=== PATIENT | female | born 1990 | race Caucasian/White ===

== ENCOUNTER 2018-12-07 09:56 | Outpatient (CLI) | payer MEDICAID, OTHER ==
[~2018-12-07] VITALS: Ht 165.1 cm; Wt 81.2 kg
[~2018-12-07 09:56] MED LIST: FERR134T PO; PNV11TAB PO
[2018-12-07 10:21] VITALS: BP 115/70; PULSE 68; Ht 165.1 cm; Wt 81.2 kg
--- NOTE | 2018-12-07 15:15 | TRIAGE ---
OB Triage Datetime Report Generated by CPN: 12/07/2018 15:15 Datetime: 12/07/2018 13:31 Stage of : OB Triage Datetime: 12/07/2018 13:19 Labor Evaluation Frequency: 8-12 Monitor Mode: External Duration (sec)2399: 40-60 Quality: Mild Pattern: Normal: <= 5 Contractions in 10 Minutes Resting Tone [place]: Relaxed Contraction Comments: DENIES FEELING Heart Rate FHR Baseline Rate: 125 Monitor Mode: External US Variability: Moderate 6-25 bpm Accelerations: 10X10 Decelerations: None Category: Category I Pain Assessment Pain Scale: 1 Pain Presence: None/Denies Pain Type: N/A Pain Goal: 3 Pain Relief Measures: Comfort Measures Datetime: 12/07/2018 12:14 Labor Evaluation Frequency: 10-15 Monitor Mode: External Duration (sec)2399: 30-60 Quality: Mild Pattern: Normal: <= 5 Contractions in 10 Minutes Resting Tone [place]: Relaxed Heart Rate FHR Baseline Rate: 125 Monitor Mode: External US Variability: Moderate 6-25 bpm Accelerations: 10X10 Decelerations: None Category: Category I Pain Assessment Pain Scale: 0 Pain Presence: None/Denies Pain Type: N/A Pain Goal: 3 Pain Relief Measures: Comfort Measures Datetime: 12/07/2018 11:13 Labor Evaluation Frequency: 10-15 Monitor Mode: External Duration (sec)2399: 40-60 Quality: Mild Pattern: Normal: <= 5 Contractions in 10 Minutes Resting Tone [place]: Relaxed Heart Rate FHR Baseline Rate: 125 Monitor Mode: External US Variability: Moderate 6-25 bpm Accelerations: 10X10 Decelerations: None Category: Category I Pain Assessment Pain Scale: 0 Pain Presence: None/Denies Pain Type: N/A Pain Goal: 3 Pain Relief Measures: Comfort Measures Datetime: 12/07/2018 10:51 Stage of : OB Triage Datetime: 12/07/2018 10:19 EGA: 37.3 Datetime: 12/07/2018 10:17 Stage of : OB Triage Assessment Type: Triage EGA: 37.3 Maternal Assessment Level of Consciousness: Keenly Alert, Responsive DTR's/Clonus: DTRs 2+; No Clonus Headache: Denies Blurred Vision: No Respiratory Effort: Unlabored; Regular Rhythm; Equal Expansion Breath Sounds, Left: Clear and Equal Breath Sounds, Right: Clear and Equal Nausea/Vomiting: Denies RUQ Epigastric Pain: Denies Facial Edema: None Temperature Route: Axillary Fall Risk Assessment History of Falling: (0) No Secondary Diagnosis: (0) No Ambulatory Aid: (0) Bedrest/Nurse Assist IV Therapy: (0) No Gait: (0) Normal/Bedrest/Immobile Mental Status: (0) Oriented to Own Ability Fall Score: 0 Fall Risk Score Definition: No Risk: No action required Labor Evaluation Frequency: X1 Monitor Mode: External Duration (sec)2399: 60 Quality: Mild Pattern: Normal: <= 5 Contractions in 10 Minutes Resting Tone [place]: Relaxed Heart Rate FHR Baseline Rate: 135 Monitor Mode: External US Variability: Moderate 6-25 bpm Accelerations: 10X10 Decelerations: None Category: Category I Pain Assessment Pain Scale: 0 Pain Presence: None/Denies Pain Type: N/A Pain Goal: 3 Pain Relief Measures: Comfort Measures Datetime: 12/07/2018 10:16 Time of Arrival: 12/07/2018 09:50 Arrived By: Ambulatory Arrived From: Home Chief Complaint: REFERRED FROM CLINIC TO CHECK ON BP, DENIES HEADACHE, BLURRY VISION OR EPIGASTRIC PAIN. DENIES LEAKING, BLEEDINGOR UC'S Movement: Present Contractions: Denies/Absent Rupture of Membranes: Denies Vaginal Bleeding: None Vaginal Discharge: Denies Recent Sexual Intercouse: Denies Abdominal Trauma: Not Applicable Patient Complaints: None Time Provider Notified: 12/07/2018 10:50 Provider Notified: MISTI Initial Plan: MONITOR, [facility], BPP
--- NOTE | 2018-12-07 19:06 | PN ---
Triage Information Date/Time Reason for visit: She referred for further evaluation due to elevated blood pressure in office Weeks of Gestation 37 weeks and 3 days /Para G1 Diabetes: none Hypertention: none Objective Vital Signs Date Temp Pulse Resp B/P (MAP) Pulse Ox O2 O2 Flow FiO2 Time Delivery Rate 12/07/18 98.2 68 115/70 10:21 (85) Heart Rate: 130's Contractions: None Results/Medications Result Diagram: 12/07/18 1104 12/07/18 1104 Results 24 hrs Laboratory Tests Test 12/07/18 10:00 12/07/18 11:04 Urine Color LYDIA Urine Clarity CLOUDY A Urine pH 6.0 Urine Specific [place] 1.020 Urine Ketones NEGATIVE Urine Nitrite NEGATIVE Urine Bilirubin NEGATIVE Urine Urobilinogen NEGATIVE Urine Leukocyte Esterase 1+ H Urine Microscopic RBC 1 Urine Microscopic WBC 10 H Urine Squamous Epithelial Cells FEW Urine Bacteria FEW A Urine Hemoglobin NEGATIVE Urine Glucose NEGATIVE Urine Total Protein NEGATIVE White Blood Count 8.6 Red Blood Count 3.90 L Hemoglobin 11.6 L Hematocrit 34.9 L Mean Corpuscular Volume 89.5 Mean Corpuscular Hemoglobin 29.7 Mean Corpuscular Hemoglobin Concent 33.2 Red Cell Distribution Width 12.9 Platelet Count 158 Mean Platelet Volume 10.2 Immature Granulocytes % 0.600 H Neutrophils % 76.7 Lymphocytes % 14.8 L Monocytes % 6.5 Eosinophils % 1.2 Basophils % 0.2 Nucleated Red Blood Cells % 0.0 Immature Granulocytes # 0.050 H Neutrophils # 6.6 Lymphocytes # 1.3 Monocytes # 0.6 Eosinophils # 0.1 Basophils # 0.0 Nucleated Red Blood Cells # 0.0 Prothrombin Time 12.4 Prothrombin Time Ratio 1.0 INR International Normalized Ratio 0.91 Activated Partial Thromboplast Time 32.2 Fibrinogen 468.0 H Sodium Level 135 Potassium Level 3.8 Chloride Level 106 Carbon Dioxide Level 22 Anion Gap 7 Blood Urea Nitrogen 8 Creatinine 0.57 Est Glomerular Filtrat Rate mL/min > 60 Glucose Level 107 Uric Acid 4.3 Calcium Level 8.7 Total Bilirubin 0.4 Direct Bilirubin 0.00 Indirect Bilirubin 0.4 Aspartate Amino Transf (AST/SGOT) 17 Alanine Aminotransferase (ALT/SGPT) 14 Alkaline Phosphatase 134 H Total Protein 6.2 Albumin 3.3 Globulin 2.90 Albumin/Globulin Ratio 1.13 Disposition: Discharge Assessment/Plan 27 years old 1 with single intrauterine at 37 weeks and 3 days referred to triage for further evaluation due to having one elevated blood pressure in office today. She states good movement. She denies nausea, vomiting, shortness of breath, chest pain, headache, visual changes, vaginal bleeding or LOF. -FHR: No sign of metabolic acidosis- Category I -Contractions: None -All blood pressure in triage where within normal limits -Ultrasound performed: Normal ARNAV, BPP 8 out of 8 -Symptoms and sign of labor, preeclampsia, kick count discussed with patient, she voiced understanding. All of her questions answered. -Patient was discharged home in stable condition with the appropriate discharge instructions provided. I would like patient to have close follow-up with her primary physician or outpatient clinic in 1-2 days or return to triage for worsening symptoms or any other urgent concerns. MAYO SHER Dec 07, 2018 19:06
== END 2018-12-07 14:05 | disposition home or self-care (01) ==
LOC: OBT 09:56 → L-D 09:58 → OBT 14:05
PROVIDERS: ATTEND Obstetrics & Gynecology
DX: O16.3 Unspecified maternal hypertension, third trimester (principal); Z3A.37 37 weeks gestation of pregnancy
CPT/HCPCS: 76818; 80053; 81001; 84560; 85025; 85384; 85610; 85730; Z7500; G0463

== ENCOUNTER 2018-12-19 10:33 | Outpatient (CLI) | payer MEDICAID ==
[~2018-12-19] VITALS: Ht 165.1 cm; Wt 83.1 kg
[2018-12-19 10:57] VITALS: Ht 165.1 cm; Wt 83.1 kg
[2018-12-19 10:58] VITALS: BP 114/62; PULSE 57; RESP 18
--- NOTE | 2018-12-19 12:55 | TRIAGE ---
OB Triage Datetime Report Generated by CPN: 12/19/2018 12:55 Datetime: 12/19/2018 12:49 Time of Arrival: 12/19/2018 12:49 EGA: 39.1 Chief Complaint: c/o cramping, brownish vaginal discharge Movement: Present Contractions: Irregular Rupture of Membranes: Denies Vaginal Discharge: Denies Recent Sexual Intercouse: Denies Abdominal Trauma: Not Applicable Patient Complaints: Other Additional Patient Complaints: r/o labor, r/o abruption Time Provider Notified: 12/19/2018 12:10 Provider Notified: Datetime: 12/19/2018 12:45 Labor Evaluation Frequency: irreg Monitor Mode: External Duration (sec)2399: 60-80 Quality: Mild Pattern: Normal: <= 5 Contractions in 10 Minutes Resting Tone [place]: Relaxed Heart Rate FHR Baseline Rate: 120 Monitor Mode: External US Variability: Moderate 6-25 bpm Accelerations: 15X15 Decelerations: None Category: Category I Pain Assessment Pain Presence: None/Denies Pain Type: N/A Datetime: 12/19/2018 12:10 Vaginal Exam Dilatation (cms): 1.0 Effacement (%): 40 Station: -3 Exam By: Datetime: 12/19/2018 12:01 Labor Evaluation Frequency: irreg Monitor Mode: External Duration (sec)2399: 50-80 Quality: Mild Pattern: Normal: <= 5 Contractions in 10 Minutes Resting Tone [place]: Relaxed Heart Rate FHR Baseline Rate: 120 Variability: Moderate 6-25 bpm Accelerations: 15X15 Decelerations: None Category: Category I Pain Assessment Pain Presence: None/Denies Pain Type: N/A Datetime: 12/19/2018 11:03 Assessment Type: Triage Maternal Assessment Level of Consciousness: Keenly Alert, Responsive DTR's/Clonus: DTRs 2+; No Clonus Headache: Denies Blurred Vision: No Respiratory Effort: Unlabored; Regular Rhythm; Equal Expansion Breath Sounds, Left: Clear and Equal Breath Sounds, Right: Clear and Equal Nausea/Vomiting: Denies RUQ Epigastric Pain: Denies Lower Extremities Edema: None Degree: None Upper Extremities Edema: None Degree: None Facial Edema: None Fall Risk Assessment History of Falling: (0) No Secondary Diagnosis: (0) No Ambulatory Aid: (0) Bedrest/Nurse Assist IV Therapy: (0) No Gait: (0) Normal/Bedrest/Immobile Mental Status: (0) Oriented to Own Ability Fall Score: 0 Fall Risk Score Definition: No Risk: No action required Datetime: 12/07/2018 15:04 Movement: Present Contractions: Irregular Datetime: 12/07/2018 10:19 EGA: 37.3 Datetime: 12/07/2018 10:17 EGA: 37.3 Fall Score: 0 Fall Risk Score Definition: No Risk: No action required
--- NOTE | 2018-12-19 14:17 | PREOPHP ---
DATE OF ADMISSION: 12/19/2018 HISTORY OF PRESENT ILLNESS: Ms. Vince Ponce is a 28-year-old 1, para 0, EDC 12/25/2018 int rauterine at 39 weeks and 1 day gestational age, presented to triage complaining of crampin g. She reports of having vaginal spotting yesterday. She reports good movement. Her care took place at [facility]. PAST MEDICAL HISTORY: None. MEDICATIONS: vitamins. PAST SURGICAL HISTORY: None. OBSTETRIC HISTORY: Primigravida. GYNECOLOGIC HISTORY: 12, regular 3 to 4 days. Denies any sexually transmitted infections. Sexually active with 1 partner. SOCIAL HISTORY: Denies any smoking, drugs or alcohol. FAMILY HISTORY: None. REVIEW OF SYSTEMS: All within normal except history of present illness. PHYSICAL EXAMINATION: HEENT: Within normal. LUNGS: CTA bilateral. CARDIOVASCULAR: S1. Regular rhythm. ABDOMEN: Gravid, nontender. Negative CVA bilateral. EXTREMITIES: Negative calf tenderness. PELVIC: Vaginal exam 140 -3. heart tracing category 1. Gann: Irregular contractions. ASSESSMENT: Intrauterine at 39 weeks and 1 day gestational age, currently not in active la bor. PLAN: Discharged home with strict labor precautions, kick count and agreed to return to the spital if contractions get closer together. Dictated By: SHA GARDNER/MILA Conf#: [id number] DID#: [id number]
== END 2018-12-19 13:00 | disposition home or self-care (01) ==
LOC: OBT 10:33 → L-D 10:34 → OBT 13:00
PROVIDERS: ATTEND Obstetrics & Gynecology
DX: O26.853 Spotting complicating pregnancy, third trimester (principal); Z3A.39 39 weeks gestation of pregnancy
CPT/HCPCS: 76818; 85025; Z7500; G0463

== ENCOUNTER 2018-12-20 03:15 | Inpatient (IN) | payer MEDICAID ==
[~2018-12-20] VITALS: Ht 165.1 cm; Wt 176.0 kg
[2018-12-22 08:00] VITALS: BP 111/55; PULSE 73; RESP 18
== END 2018-12-22 16:00 | disposition home or self-care (01) | DRG 807 ==
LOC: OBT 03:15 → L-D 03:15 → OBT 04:00 → L-D 04:00 → PP1 16:45
PROVIDERS: ADMIT Obstetrics & Gynecology; ATTEND Obstetrics & Gynecology
PROC: 10E0XZZ Delivery of Products of Conception, External Approach (ICD-10-PCS; principal; 2018-12-20)
DX: O69.81X0 Labor and delivery complicated by cord around neck, without compression, not applicable or unspecified (principal); Z37.0 Single live birth; Z3A.39 39 weeks gestation of pregnancy
CPT/HCPCS: 62322; 76815; 76818; 80307; 85025; 85610; 85730; 86592; 86850; 86900; 86901; 87340; 99464; G0463; J2590; J3010; J7120